=== PATIENT | male | born 2000 | race American Indian/Alaskan Native ===

== ENCOUNTER 2020-12-30 00:04 | Emergency (ER) | payer SELFPAY ==
[2020-12-30 03:01] VITALS: BP 157/103
--- NOTE | 2020-12-30 03:17 | XRay Report ---
CHEST 1 VIEW 12/30/2020 3:10 AM INDICATION / CLINICAL INFORMATION: cough. COMPARISON: None available. FINDINGS: SUPPORT DEVICES: None. HEART / MEDIASTINUM: No significant abnormality. LUNGS / PLEURA: No significant pulmonary abnormality. No significant pleural effusion. No pneumothora x. ADDITIONAL FINDINGS: No significant additional findings. IMPRESSION: 1. No acute abnormality of the chest. Signer Name: Alfred Andre MD Signed: 12/30/2020 3:13 AM Workstation Name: [id number]
--- NOTE | 2020-12-30 03:38 | Emergency Department Report ---
ED General Adult HPI - General Chief complaint: Arrhythmia/Palpitations Stated complaint: CHEST PAIN/IRREGULAR HEARTBEAT Source: patient Mode of arrival: Ambulatory Limitations: No Limitations - History of Present Illness Initial comments: Patient is a 20-year-old -[place] male with a history of asthma who presents to the ED with complaint of persistent dry cough intermittently as well as elevated heart rate each time he uses his albuterol inhaler for the last 3 months. Patient states that each time he uses the inhaler he feels as if his heart is racing and he would like to be evaluated. Patient denies dizziness, syncope, chest pain, shortness of breath, wheezing, fever, chills, nausea, vomiting, abdominal pain, back pain, sore throat, nasal and sinus congestion or diaphoresis and palpitations. MD Complaint: Persistent cough, elevated heart rate, asthma -: Gradual, month(s) (3) Location: chest Radiation: non-radiation Severity scale (0 -10): 0 Consistency: intermittent Improves with: none Worsens with: other (Use of bronchodilator inhalers) Associated Symptoms: denies other symptoms, cough. denies: confusion, chest pain, diaphoresis, fever/chills, headaches, loss of appetite, malaise, nausea/vomiting, rash, seizure, shortness of breath, syncope, weakness, other Treatments Prior to Arrival: none - Related Data Allergies Allergy/AdvReac Type Severity Reaction Status Date / Time No Known Allergies Allergy Unverified 12/30/20 03:04 ED Review of Systems ROS: Stated complaint: CHEST PAIN/IRREGULAR HEARTBEAT Other details as noted in HPI Constitutional: denies: chills, fever Eyes: denies: eye pain, eye discharge, vision change ENT: denies: ear pain, throat pain Respiratory: denies: cough, shortness of breath, wheezing Cardiovascular: other (Elevated heart rate with bronchodilator use). denies: chest pain, palpitations Endocrine: no symptoms reported Gastrointestinal: denies: abdominal pain, nausea, vomiting, diarrhea Genitourinary: denies: urgency, dysuria Musculoskeletal: denies: back pain, joint swelling, arthralgia Skin: denies: rash, lesions Neurological: denies: headache, weakness, paresthesias Psychiatric: denies: anxiety, depression Hematological/Lymphatic: denies: easy bleeding, easy bruising ED Past Medical Hx - Past Medical History Previous Medical History?: Yes Hx Asthma: Yes - Surgical History Past Surgical History?: No - Social History Smoking Status: Former Smoker Substance Use Type: None ED Physical Exam - General Limitations: No Limitations General appearance: alert, in no apparent distress - Head Head exam: Present: atraumatic, normocephalic, normal inspection - Eye Eye exam: Present: normal appearance, PERRL, EOMI Pupils: Present: normal accommodation - ENT ENT exam: Present: normal exam, normal orophraynx, mucous membranes moist, TM's normal bilaterally, normal external ear exam - Neck Neck exam: Present: normal inspection, full ROM - Respiratory Respiratory exam: Present: normal lung sounds bilaterally. Absent: respiratory distress, wheezes, rales, rhonchi, chest wall tenderness, accessory muscle use - Cardiovascular Cardiovascular Exam: Present: normal rhythm, bradycardia, normal heart sounds. Absent: systolic murmur, diastolic murmur, rubs, gallop - GI/Abdominal GI/Abdominal exam: Present: soft, normal bowel sounds. Absent: distended, tenderness, guarding, rebound, hyperactive bowel sounds, hypoactive bowel sounds, organomegaly - Extremities Exam Extremities exam: Present: normal inspection, full ROM, normal capillary refill - Back Exam Back exam: Present: normal inspection, full ROM. Absent: tenderness, CVA tenderness (R), CVA tenderness (L), muscle spasm, paraspinal tenderness - Neurological Exam Neurological exam: Present: alert, oriented X3, CN II-XII intact, normal gait, reflexes normal - Psychiatric Psychiatric exam: Present: normal affect, normal mood - Skin Skin exam: Present: warm, dry, intact, normal color. Absent: rash ED Course Vital Signs 12/30/20 02:49 Temperature 97.6 F Pulse Rate 54 L Respiratory 16 Rate Blood Pressure 157/103 O2 Sat by Pulse 99 Oximetry ED Medical Decision Making - Radiology Data Radiology results: report reviewed, image reviewed [facility] [address] [place] [address] XRay Report Signed Patient: ORXIE FRYE MR#: [id number] : 2000 Acct:[id number] Age/Sex: 20 / M ADM Date: 12/30/20 Loc: ED Attending Dr: Ordering Physician: MONA FUCHS Date of Service: 12/30/20 Procedure(s): XR chest 1V ap Accession Number(s): [id number] cc: MONA FUCHS Fluoro Time In Minutes: CHEST 1 VIEW 12/30/2020 3:10 AM INDICATION / CLINICAL INFORMATION: cough. COMPARISON: None available. FINDINGS: SUPPORT DEVICES: None. HEART / MEDIASTINUM: No significant abnormality. LUNGS / PLEURA: No significant pulmonary abnormality. No significant pleural effusion. No pneumothorax. ADDITIONAL FINDINGS: No significant additional findings. IMPRESSION: 1. No acute abnormality of the chest. Signer Name: Alfred Andre MD Signed: 12/30/2020 3:13 AM Workstation Name: [id number] Transcribed By: MN Dictated By: Alfred Andre MD Electronically Authenticated By: Alfred Andre MD Signed Date/Time: 12/30/20312 DD/ 1 TD/TT: Print - Medical Decision Making This is a 20-year-old -[place] male with a history of asthma who presents to the ED with complaint of persistent dry cough intermittently as well as elevated heart rate each time he uses his albuterol inhaler for the last 3 months. Patient states that each time he uses the inhaler he feels as if his heart is racing and he would like to be evaluated. In the ED, patient is alert and oriented x3 and is not in any distress with a stable vital signs. Chest x- ray shows no acute cardiopulmonary abnormalities or pneumonitis. Patient the patient's history of asthma and the fact that he uses bronchodilator inhalers, the patient's symptoms of tachycardia is a side effect of the use of the bronchodilator inhalers. Patient was given this information that it is expected that these medications usually elevate heart rate whenever they are used. Patient verbalized understanding. Patient is currently asymptomatic during the ED visit. Patient was therefore discharged home and advised to follow-up with his primary care physician in 5 to 7 days for reevaluation. Patient was advised return to the ED immediately if symptoms get worse. - Differential Diagnosis Anxiety; asthma; chronic bronchitis Critical care attestation.: If time is entered above; I have spent that time in minutes in the direct care of this critically ill patient, excluding procedure time. ED Disposition Clinical Impression: Chronic asthma not affecting current episode of care Disposition: DC- TO HOME OR SELFCARE Is pt being admited?: No Does the pt Need Aspirin: No Condition: Stable Instructions: Asthma (ED), Cough, Adult, Ohkc-[id number]-Auxp, Asthma Attack Prevention, Adult, Asthma, Adult, [id number], How to Use a Metered Dose Inhaler Additional Instructions: Chest x-ray shows no acute cardiopulmonary abnormalities or pneumonitis. Therefore follow-up with your primary care physician in 5 to 7 days for reevaluation or return to the ED immediately if symptoms get worse. Referrals: [facility] [Provider Group] - 3-5 Days Time of Disposition: 03:38 Print Language: [place]
--- NOTE | 2020-12-30 14:32 | Electrocardiograph Report ---
[facility] Test Date: 2020-12-30 Test Time: 00:15:35 Pat Name: ROXIE FRYE Department: Room: Gender: M Apron Operator: : 2000 Requested By: RIYA DUMAS Order Number: [id number] Reading MD: Daniel Fulton Measurements Intervals [place] Rate: 53 P: 30 VT: 156 QRS: 70 QRSD: 79 T: 25 QT: 415 QTc: 389 Interpretive Statements Sinus bradycardia Early repolarization ST changes No previous ECG available for comparison Electronically Signed On 12-30-2020 14:32:45 EDT by Daniel Fulton
== END 2020-12-30 03:48 | disposition home or self-care (01) ==
LOC: ED 00:04
DX: J45.909 Unspecified asthma, uncomplicated (principal); Z87.891 Personal history of nicotine dependence
CPT/HCPCS: 71045; 93005; 99283